=== PATIENT | female | born 1995 | race Hispanic/Latino ===

== ENCOUNTER 2016-10-20 19:28 | Emergency (ER) | payer OTHER ==
[~2016-10-20] VITALS: Ht 162.6 cm; Wt 77.1 kg
[~2016-10-20 19:28] MED LIST: ABILIFY 2MG2 MG PO; AMOXIL500 MG PO; LAMICTAL 100MG100 MG PO; MICROGESTIN FE1 TA1 PO; MIRALAX17 GM PO; NAPROSYN 500 M500 MG PO; PREDNISONE 20MG20 MG PO; VALTREX1 GM PO; ZITHROMAX Z-PA250 M1 PO; ZOFRAN ODT4 MG PO
--- NOTE | 2016-10-20 20:04 | ED PSYCHIATRIC COMPLAINT ---
History of Present Illness General Chief Complaint: Psychiatric Related Complaint Stated Complaint: "IM REALLY AXIETY" Source: patient Exam Limitations: poor historian Vital Signs & Intake/Output Vital Signs & Intake/Output Vital Signs Date Time Temp Pulse Resp B/P Pulse O2 O2 Flow FiO2 Ox Delivery Rate 10/21 1941 99.6 86 18 112/64 97 Room Air 10/21 1610 99.4 83 18 109/74 99 Room Air 10/21 1128 98.9 80 16 98 Room Air 10/21 1127 158/46 10/21 0628 97.0 62 22 111/58 97 Room Air ED Intake and Output 10/21 0000 10/20 1200 Intake Total Output Total Balance Patient 170 lb Weight Allergies Uncoded Allergies: INSECT BITES (UNKNOWN 06/04/12) Triage Note: 21 YEAR OLD FEMALE TO TRIAGE WITH HER THERAPIST , PT IS BIPOLAR HAS DEPRESSION AND ANXIETY, PT STATES THAT HER MOODS ARE ALL OVER THE PLACE, CRYING AT TRIAGE. DENIES SI/HI AT THIS TIME. PT FEELS SHE MAY NEED IN PATIENT HELP Triage Nurses Notes Reviewed? yes Onset: Abrupt Duration: day(s): Timing: recent history : No Patient currently breastfeeds: No HPI: 10/20/16 9 PM 21-year-old female presents to the emergency department complaining for anxiety and depression. According to the patient she says she had a history of anxiety and depression. She says over the past several days she's had ongoing depression and is having suicidal ideation. The onset of the symptoms were abrupt, the duration has been the past several days, the severity is significant as her symptoms required her to come to the emergency department for care. (BUCK ECKERT DO) Reconcile Medications Clonazepam 0.5 MG TABLET 1 TAB PO BIDP PRN ANXIETY (Reported) Ethinyl Estradiol/Norethindr2 (Microgestin Fe / 20 Mcg-75 MG-1 MG) 1 TAB TAB 1 TAB PO DAILY CONTROL (Reported) Lurasidone HCl (Latuda) 20 MG TABLET 1 TAB PO DAILY MENTAL HEALTH (Reported) (ALYSSA HERNANDEZ,SHIMON) Past History Travel History Traveled to [place] past 21 day No Medical History Any Pertinent Medical History? see below for history Neurological: NONE EENT: NONE Cardiovascular: NONE Respiratory: NONE Gastrointestinal: irritable bowel syndrome Hepatic: NONE Renal: NONE Musculoskeletal: fibromyalgia Psychiatric: anxiety, bipolar disease, depression Endocrine: NONE Blood Disorders: NONE Cancer(s): NONE Surgical History Surgical History: N Psychosocial History What is your primary language Emir[place] Tobacco Use: Never used ETOH Use: denies use Illicit Drug Use: denies illicit drug use Family History Hx Contributory? No (BUCK ECKERT DO) Review of Systems Review of Systems Constitutional: Denies: fever. EENTM: Denies: visual changes. Respiratory: Denies: short of breath. Cardiovascular: Denies: chest pain. GI: Denies: abdominal pain. Genitourinary: Reports: no symptoms. Musculoskeletal: Reports: no symptoms. Skin: Reports: no symptoms. Neurological/Psychological: Reports: no symptoms. Hematologic/Endocrine: Reports: no symptoms. (BUCK ECKERT DO) Physical Exam Physical Exam General Appearance: well developed/nourished, alert, awake, anxious, moderate distress Head: atraumatic, normal appearance Eyes: Bilateral: normal appearance, PERRL, EOMI. Ears, Nose, Throat: normal pharynx, normal ENT inspection Neck: normal inspection, supple Respiratory: normal breath sounds, chest non-tender, no respiratory distress Cardiovascular: regular rate/rhythm Gastrointestinal: soft, non-tender Extremities: normal range of motion Neurological/Psychiatric: no motor/sensory deficits, awake, agitated, alert, depressed affect Appearance/Memory/Insight: disheveled Behavoir/Eye Contact/Speech: compulsive Thoughts/Hallucinations: no apparent hallucination Skin: intact, normal color, warm/dry SAD PERSONS SAD PERSONS Response Value Depression/Hopelessness? yes 2 Previous Attempts/Psych Care yes 1 Social Support? has no support 1 Total 4 SAD PERSONS Done? yes (BUCK ECKERT DO) Progress Differential Diagnosis: drug intoxication, drug overdose, drug withdrawal, depression Plan of Care: Orders Procedure Date/time Status Regular Diet 10/21 B Active Continuous Observation Monitor 10/21 1900 Active Continuous Observation Monitor 10/21 1500 Active Continuous Observation Monitor 10/21 1100 Active Continuous Observation Monitor 10/21 0700 Active Continuous Observation Monitor 10/20 2158 Active URINE DRUG SCREEN FOR ER ONLY 10/20 2158 Complete ETHANOL 10/20 2158 Complete COMPREHENSIVE METABOLIC PANEL 10/20 2158 Complete CBC WITHOUT DIFFERENTIAL 10/20 2158 Complete ED CRISIS PSYCH CONSULT 10/20 2158 Active Laboratory Tests 10/20/16 2230: Urine Opiates Screen < 100.00, Methadone Screen < 40, Barbiturate Screen < 60, Ur Phencyclidine Scrn < 6.00, Amphetamines Screen < 100, U Benzodiazepines Scrn < 85, Urine Cocaine Screen < 50, Urine Cannabis Screen < 5.00 10/20/16 2215: Anion Gap 12, Estimated GFR > 60, BUN/Creatinine Ratio 11.3, Glucose 97, Calcium 9.5, Total Bilirubin 0.4, AST 18, ALT 28, Alkaline Phosphatase 58, Total Protein 7.4, Albumin 4.0, Globulin 3.4, Albumin/Globulin Ratio 1.2, CBC w Diff NO MAN DIFF REQ, RBC 4.47, MCV 87.6, MCH 29.7, RDW 13.1, MPV 9.2, Gran % 61.0, Lymphocytes % 30.2, Monocytes % 7.2, Eosinophils % 1.2, Basophils % 0.4, Absolute Granulocytes 5.1, Absolute Lymphocytes 2.5, Absolute Monocytes 0.6, Absolute Eosinophils 0.1, Absolute Basophils 0, PUBS MCHC 33.9, Serum Alcohol < 10.0 9:13 PM PATIENT TRANSFERRED TO [facility], ACCEPTED BY DR HAMMONDS. (LESLY SERNA MD) Pre-Hospital EKG: none (BUCK ECKERT DO) Hand-Off Endorsed To: SHIMON SHAH MD Endorsed Time: 0700 Pending: consult (SHANDRA HERNANDEZ,FERCHO Miller) Hand-Off Endorsed To: LESLY SERNA MD Endorsed Time: 1900 Pending: other (placement) (SHIMON SHAH MD) Departure Departure Condition: Stable Clinical Impression Primary Impression: Depression Referrals: WILDER JENSEN MD (PCP/Family) Departure Forms: Customer Survey General Discharge Information Comments 10/20/16 11 PM Patient signed out to Dr. Hall for crisis evaluation the a.m. (BUCK ECKERT DO) Departure Time of Disposition: 2112 Disposition: OTHER [facility] (LESLY SERNA MD) Critical Care Note Critical Care Note Critical Care Time: 30-74 min (BUCK ECKERT DO)
--- NOTE | 2016-10-20 22:26 | ED PSY CRISIS COLLATERAL NOTE ---
Collateral Note Collateral Note Family/Inform/Blaise Contacts: Posting Machine Operator interviewed Mary Lyons, mother of pt. Ms. Lyons reported that her daughter had been up and down over the past few days, crying hysterically and then "feeling fine" and having racing thoughts. She reported that her daughter was diagnosed with bipolar disorder in 2014 by [facility] and by her psychiatrist Dr. Manuel in [place]. Mother reported that Pt. was seeing a new counselor and psychiatrist (seen only a few times) in [place] where they recently moved. Psychiatrist Dr. Stan Davies and Dre Campbell MA, LASER/ELECTRO [employer]ICS TECHNICIAN , who escorted the pt. to the emergency room. Mother reported that her daughter did not express suicidal thoughts with a plan, but her daughter had expressed having thoughts that "it might be better if she wasn' t here". Mother also reported recent stressors including daughter's past medical leave from work ending this week when she returned to work on Sunday. Mother wants her daughter to get the help she needs.
[2016-10-20 22:37] LABS: ABSOLUTE BASOPHIL COUNT 0 /CUMM (0.0-0.2); ABSOLUTE EOSINOPHIL COUNT 0.1 /CUMM (0.0-0.7); ABSOLUTE GRANULOCYTE CT 5.1 /CUMM (1.4-6.5); ABSOLUTE LYMPH COUNT 2.5 /CUMM (1.2-3.4); ABSOLUTE MONOCYTE COUNT 0.6 /CUMM (0.10-0.60); BASOPHIL % 0.4 % (0.0-2.0); EOSINOPHIL % 1.2 % (0-5); HEMATOCRIT 39.2 % (37-47); MEAN CORPUSCULAR HGB 29.7 PG (27.0-31.0); MEAN CORPUSCULAR HGB CONC 33.9 G/DL (33.0-37.0); MEAN CORPUSCULAR VOLUME 87.6 FL (81.0-99.0); MEAN PLATELET VOLUME 9.2 FL (7.4-10.4); PLATELET COUNT 257 /CUMM (130-400); RBC DISTRIBUTION WIDTH 13.1 % (11.5-14.5); RED BLOOD CELL CT 4.47 /CUMM (4.20-5.40); WHITE BLOOD CELL COUNT 8.4 /CUMM (4.8-10.8)
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
[2016-10-21] MEDS ORDERED: LATUDA20 M1 PO (16:07)
[2016-10-21] MEDS ORDERED: CLONAZEPAM0.5 M2 PO (16:07)
[2016-10-21 19:41] VITALS: BP 112/64
== END 2016-10-21 21:57 | disposition short-term general hospital (02) ==
LOC: ERH 19:28
PROVIDERS: Emergency Medicine
DX: F32.9 Major depressive disorder, single episode, unspecified (principal); R45.851 Suicidal ideations
CPT/HCPCS: 80307; 81025; G0463; G0480